=== PATIENT | female | born 1960 | race American Indian/Alaskan Native ===

== ENCOUNTER 2017-03-19 11:13 | Emergency (ER) | payer MEDICARE, BC ==
[2017-03-19 11:22] VITALS: BMI 32.3
[2017-03-19 11:27] VITALS: TEMP 98
--- NOTE | 2017-03-19 12:16 | ED PDOC ---
Arrival/HPI - General Historian: Patient - History of Present Illness Time/Duration: Prior to Arrival Symptom Onset: Sudden Symptom Course: Unchanged <Fortino Jimenez - Last Filed: 03/19/17 15:36> <LisaDu L - Last Filed: 03/19/17 17:08> - General Chief Complaint: High Blood Pressure Time Seen by Provider: 03/19/17 11:24 - History of Present Illness Narrative History of Present Illness (Text): 57F with pmh of uncontrolled HTN, CKD 3, Osteoarthritis, presents to the ED from same day surgery. Pt was scheduled to have a kidney biopsy for proteinuria but was found to have a BP of 209/118. Her covering PMD - Dr Wilburn was called which stated the patient should come here to the ED. Pt denies any headache, dizziness, fever, chills, visual changes, focal deficits, cp, sob, palpitations, abd pain, n/v/d urinary or bm changes. Pt is allergic to Clonidine. PMD: Dr Larry (Fortino Jimenez) Past Medical History - Provider Review Nursing Documentation Reviewed: Yes - Infectious Disease Hx of Infectious Diseases: None - Tetanus Immunization Tetanus Immunization: Unknown - Cardiac Hx Pacemaker: No - Pulmonary Hx Asthma: Yes - Neurological Hx Paralysis: No - HEENT Hx HEENT Disorder: No - Renal Hx Renal Failure: Yes - Endocrine/Metabolic Hx Endocrine Disorders: No - Hematological/Oncological Hx Blood Transfusions: No - Integumentary Hx Dermatological Disorder: No - Musculoskeletal/Rheumatological Hx Musculoskeletal Disorders: Yes (OA) - Gastrointestinal Hx Gastrointestinal Disorders: No - Genitourinary/Gynecological Hx Genitourinary Disorders: Yes Other/Comment: hysterectomy - Psychiatric Hx Emotional Abuse: No Hx Physical Abuse: No Hx Substance Use: No - Surgical History Hx Hysterectomy: Yes - Anesthesia Hx Anesthesia: Yes Hx Anesthesia Reactions: No Hx Malignant Hyperthermia: No - Suicidal Assessment Feels Threatened In Home Enviroment: No <Fortino Jimenez - Last Filed: 03/19/17 15:36> Family/Social History - Physician Review Nursing Documentation Reviewed: Yes Family/Social History: No Known Family HX Smoking Status: Never Smoked Hx Alcohol Use: No Hx Substance Use: No <Fortino Jimenez - Last Filed: 03/19/17 15:36> Allergies/Home Meds <Fortino Jimenez - Last Filed: 03/19/17 15:36> <Du Gonzalez - Last Filed: 03/19/17 17:08> Allergies/Adverse Reactions: Allergies clonidine Allergy (Severe, Verified 03/13/17 14:20) ANAPHYLAXIS Home Medications: Home Meds Medication Instructions Recorded Confirmed hydrALAZINE [Apresoline] 50 mg PO BID 06/01/15 03/19/17 Methyldopa [Aldomet] 250 mg PO DAILY 03/13/17 03/19/17 cloNIDine 0.2 mg/24 hr 0.2 patch TOP DAILY 03/19/17 03/19/17 Review of Systems - Review of Systems Constitutional: absent: Weight Change, Fevers Eyes: absent: Vision Changes ENT: absent: Hearing Changes Respiratory: absent: SOB, Cough Cardiovascular: absent: Chest Pain, Palpitations, Edema, Calf Pain Gastrointestinal: absent: Abdominal Pain, Diarrhea, Nausea, Vomiting Genitourinary Female: absent: Dysuria, Frequency Musculoskeletal: absent: Back Pain Skin: absent: Rash Neurological: absent: Headache, Dizziness, Focal Weakness Psychiatric: absent: Anxiety, Depression <TonyFortino - Last Filed: 03/19/17 15:36> Physical Exam Temperature: Afebrile Blood Pressure: Hypertensive Pulse: Regular Respiratory Rate: Normal Appearance: Positive for: Well-Appearing, Non-Toxic, Comfortable Mental Status: Positive for: Alert and Oriented X 3 - Systems Exam Head: Present: Atraumatic, Normocephalic Pupils: Present: PERRL Extroacular Muscles: Present: EOMI Mouth: Present: Moist Mucous Membranes Neck: Present: Normal Range of Motion Respiratory/Chest: Present: Clear to Auscultation, Good Air Exchange. No: Respiratory Distress, Accessory Muscle Use Cardiovascular: Present: Regular Rate and Rhythm, Normal S1, S2. No: Murmurs Abdomen: Present: Normal Bowel Sounds. No: Tenderness, Distention, Peritoneal Signs Upper Extremity: Present: Normal Inspection. No: Cyanosis, Edema Lower Extremity: Present: Normal Inspection. No: Edema Neurological: Present: GCS=15, CN II-XII Intact, Speech Normal Skin: Present: Warm, Dry, Normal Color. No: Rashes Psychiatric: Present: Alert, Oriented x 3, Normal Insight, Normal Concentration <Fortino Jimenez - Last Filed: 03/19/17 15:36> Temperature: Afebrile Blood Pressure: Hypertensive Pulse: Regular Respiratory Rate: Normal Appearance: Positive for: Well-Appearing, Non-Toxic, Comfortable Pain Distress: None Mental Status: Positive for: Alert and Oriented X 3 - Systems Exam Head: Present: Atraumatic, Normocephalic Pupils: Present: PERRL Extroacular Muscles: Present: EOMI Conjunctiva: Present: Normal Mouth: Present: Moist Mucous Membranes Pharnyx: Present: Normal Neck: Present: Normal Range of Motion. No: Bruit Respiratory/Chest: Present: Clear to Auscultation, Good Air Exchange. No: Respiratory Distress, Accessory Muscle Use Cardiovascular: Present: Regular Rate and Rhythm, Normal S1, S2. No: Murmurs Abdomen: Present: Normal Bowel Sounds. No: Tenderness, Distention, Peritoneal Signs Back: Present: Normal Inspection Upper Extremity: Present: Normal Inspection, NORMAL PULSES. No: Cyanosis, Edema Lower Extremity: Present: Normal Inspection, NORMAL PULSES. No: Edema Neurological: Present: GCS=15, CN II-XII Intact, Speech Normal, Motor Func Grossly Intact, Normal Sensory Function, Normal Cerebellar Funct, Norm Deep Tendon Reflexes, Gait Normal, Memory Normal, Normal 2Pt Descrimination Skin: Present: Warm, Dry, Normal Color. No: Rashes Psychiatric: Present: Alert, Oriented x 3, Normal Insight, Normal Concentration <Du Gonzalez L - Last Filed: 03/19/17 17:08> Vital Signs Temp Pulse Resp BP Pulse Ox 03/19/17 15:22 78 19 173/94 H 99 03/19/17 14:06 174/123 H 03/19/17 13:48 88 19 192/87 H 99 03/19/17 13:19 69 192/77 H 03/19/17 12:59 69 19 191/87 H 97 03/19/17 12:45 74 19 184/100 H 98 03/19/17 12:21 65 137/104 H 03/19/17 12:14 56 L 197/110 H 03/19/17 11:26 98.0 F 59 L 18 197/121 H 99 Medical Decision Making Reassessment Condition: Re-examined, Improved <Fortino Jimenez - Last Filed: 03/19/17 15:36> <Du Gonzalez - Last Filed: 03/19/17 17:08> ED Course and Treatment: Impression: 57F with pmh of uncontrolled HTN, CKD 3, Osteoarthritis, TIA (2012) presents to the ED from same day surgery to have a kidney biopsy for proteinuria but was found to have a BP of 209/118. Differential Diagnosis included but are not limited to: Uncontrolled HTN vs CVA Plan: - CBC CMP done today - Hydralazine 10mg Stat - Reassess and disposition Prior Visits: Notes and results from previous visits were reviewed. Progress Notes: 03/19/17 15:36 BP 173/94 hemodynamically stable. Instructed to follow up with her PMD with in next 2-3 days for better control of her BP. (Fortino Jimenez) 03/19/17 15:39 Impression: 57F with pmh of uncontrolled HTN, CKD 3, Osteoarthritis, TIA (2012) presents to the ED from same day surgery to have a kidney biopsy for proteinuria but was found to have a BP of 209/118. Differential Diagnosis included but are not limited to: Uncontrolled HTN with no symptoms. I agree with resident note history and physical. I don't agree with differential listed on resident chart. Patient does have elevated blood pressure with no other symptoms. No weakness or numbness, no headache, no change in vision, no change in speech, and no other neurological complaints. No CP, Abdominal Pain, or back pain. She states that she was told to come down just because her blood pressure was elevated. Throughput the ED she was given Hydralazine IV x 2 doses and her blood pressure slowly improved. She continued to be asymptomatic in the ED. Patient had labs drawn earlier today prior to ED arrival and they have a creatinine that has not changed from baseline. Patient does not have any symptoms or lab work that are concerning for end organ injury at this point. She wants to go home. She has good follow up with her Dr. Larry and will f/u with him in 1-2days she states. She will continue to take her blood pressure medications as prescribed. (Du Gonzalez) - Medication Orders Current Medication Orders: Discontinued Medications Hydralazine HCl (Apresoline) 10 mg IVP STAT STA Stop: 03/19/17 12:09 Last Admin: 03/19/17 12:14 Dose: 10 mg Hydralazine HCl (Apresoline) 10 mg IVP STAT [facility] Last Admin: 03/19/17 13:19 Dose: 10 mg Disposition/Present on Arrival - Present on Arrival Any Indicators Present on Arrival: No History of DVT/PE: No History of Uncontrolled Diabetes: No Urinary Catheter: No History of Decub. Ulcer: No History Surgical Site Infection Following: None - Disposition Have Diagnosis and Disposition been Completed?: Yes Disposition Time: 15:15 <Fortino Jimenez - Last Filed: 03/19/17 15:36> - Present on Arrival Any Indicators Present on Arrival: No History Surgical Site Infection Following: None - Disposition Have Diagnosis and Disposition been Completed?: Yes Patient Plan: Discharge <Du Gonzalez Jaqueline - Last Filed: 03/19/17 17:08> - Disposition Diagnosis: Hypertension Disposition: HOME/ ROUTINE Condition: IMPROVED Discharge Instructions (ExitCare): Hypertension (ED) Additional Instructions: Ms Oliviaer, thank you for letting us take care of you today. Your provider was Dr. Gonzalez You were treated for Hypertension. The emergency medical care you received today was directed at your acute symptoms. If you were prescribed any medication, please fill it and take as directed. It may take several days for your symptoms to resolve. Return to the Emergency Department if your symptoms worsen, do not improve, or if you have any other problems. Please contact your doctor or call one of the physicians/clinics you have been referred to that are listed on the Patient Visit Information form that is included in your discharge packet. Bring any paperwork you were given at discharge with you along with any medications you are taking to your follow up visit. Our treatment cannot replace ongoing medical care by a primary care provider (PCP) outside of the emergency department. Thank you for allowing the [facility] team to be part of your care today. If you had an X-Ray or CT scan: A Radiologist will review the ED reading if any change in treatment is needed we will contact you. If you had a blood, urine, or wound culture: It will take several days for the results, if any change in treatment is needed we will contact you. If you had an STI test: It will take 48 hours for the results. Please call after 1 week if you have not heard back. Referrals: Anthony Larry MD [Staff Provider] - Follow up with primary Forms: [facility] ([place]i)
[2017-03-19 12:46] VITALS: RESP 19
[2017-03-19 13:48] VITALS: O2SAT 99
--- NOTE | 2017-03-19 14:23 | CARD ---
APPROVED REPORT EKG Measurement Heart [id number] MD [id number] <Conclusion> Sinus bradycardia Possible Left atrial enlargement Left ventricular hypertrophy ST & T wave abnormality, consider lateral ischemia
[2017-03-19 15:23] VITALS: BP 173/94; PULSE 78
== END 2017-03-19 15:46 | disposition home or self-care (01) ==
LOC: ED 11:13
DX: I12.9 Hypertensive chronic kidney disease with stage 1 through stage 4 chronic kidney disease, or unspecified chronic kidney disease (principal); N18.3 Chronic kidney disease, stage 3 (moderate)
CPT/HCPCS: 93005; 96374; 96376; 99285; J0360

== ENCOUNTER 2017-04-11 10:44 | Day surgery (SDC) | payer MEDICARE, BC ==
[2017-04-11 11:39] LABS: ADD MANUAL DIFF? NO
[2017-04-11 11:51] LABS: CALCIUM 9.7 mg/dL (8.4-10.5); POTASSIUM 3.9 mmol/L (3.6-5.0)
[2017-04-11 11:53] LABS: HEMATOCRIT 35.7 % (36.0-48.0); MEAN CELL VOLUME 84.8 fL (80.0-105.0); MEAN CORPUSCULAR HGB CONC 33.1 g/dl (31.0-37.0); MEAN PLATELET VOLUME 12.5 fl (7.0-11.0); PLATELET COUNT 157 10^3/uL (120.0-450.0); RED CELL DISTRIBUTION WIDTH 12.9 % (11.5-14.5); WHITE BLOOD COUNT 3.7 10^3/ul (4.5-11.0)
[2017-04-11 11:54] LABS: BASO # 0.01 K/mm3 (0.0-2.0); BASO % 0.3 % (0.0-3.0); EOS # 0.1 (0.0-0.7); EOS % 3.5 % (1.5-5.0); GRAN # 2.52 (1.4-6.5); INR 1.02 (0.93-1.08); LYMPH # 0.8 (1.2-3.4); LYMPH % 21.1 % (22.0-35.0); MONO # 0.3 (0.1-0.6); PARTIAL THROMBOPLASTIN TIME 26.2 Seconds (23.7-30.8)
--- NOTE | 2017-04-11 12:17 | CP.SDSHP ---
Same Day Surgery H & P - History Proposed Procedure: Cat scan guided renal biopsy Pre-Op Diagnosis: Proteinuria - Previous Medical/Surgical History Cardiac: Hypertension Endocrine/Metabolic: Renal Disease (CKD,Nephrosclerosis) Neuro: TIA/CVA (in 2012,had minimal effect on the L side.) Misc: Anemia, Other (Arthritis,) Pain: 0. No Pain Comments: Patient states she was told she has protienuria,needs to have renal biopsy. Previous Surgical History: Total replacement of R knee. R knee manipulation. C -section x 1. Hysterectomy. Colonoscopy. Excision R sholder cyst - Allergies Allergies: Allergies clonidine Allergy (Severe, Verified 03/13/17 14:20) ANAPHYLAXIS - Physical Exam General Appearance: Well nourished female Vital Signs: Vital Signs 04/11/17 11:15 Temperature 97.4 F L Pulse Rate 93 H Respiratory 18 Rate Blood Pressure 168/87 H O2 Sat by Pulse 98 Oximetry Mental Status: Alert & Oriented x3 Neuro: WNL Lungs: WNL - {Optional Preform as Required} Abdomen: WNL - Impression Impression: Proteinuria - Date & Time Date: 04/11/17 Time: 12:14 Short Stay Discharge - Short Stay Discharge Admitting Diagnosis/Reason for Visit: PROTEINURIA R80.9 Disposition: HOME/ ROUTINE Referrals: Anthony Larry MD [Primary Care Provider] -
[2017-04-11] MEDS ORDERED: Midazolam 2 MG/2 ML VIAL ONE (12:47)
[2017-04-11] MEDS ORDERED: Oxycodone/Acetaminophen 5/325 mg Tab PO PRN (13:31)
[2017-04-11] MEDS ORDERED: Sodium Chloride 0.45% 1,000 ML IV SCH (13:45)
[2017-04-11 14:26] VITALS: O2SAT 98
[2017-04-11 14:39] VITALS: RESP 18; TEMP 97.8
[2017-04-11 15:54] VITALS: BP 156/87; PULSE 53
--- NOTE | 2017-04-11 22:04 | CT ---
PROCEDURE: CT guided left renal cortex biopsy. HISTORY: Poorly controlled hypertension. Significant proteinuria. Evaluate for glomerulonephropathy PHYSICIAN(S): Charles Larry MD. TECHNIQUE: The relative risks and indications of the procedure were explained to the patient and consent obtained. The patient was placed prone on the CT scanner and preliminary images through the knees obtained. Conscious sedation and monitoring were provided throughout the procedure by a nurse. The limited imaging of the kidneys is unremarkable.. A left posterior approach was selected and the area prepped and draped in the usual sterile fashion. 1% Xylocaine was used to anesthetize the skin and soft tissues. A 17-gauge guiding needle was advanced into the medial and inferior left renal cortex. Its position was confirmed with CT. Using coaxial technique, multiple core biopsies were obtained. The postprocedure images show no evidence of significant hemorrhage. IMPRESSION: 1. CT-guided left renal cortex biopsy as described above.
== END 2017-04-11 16:20 | disposition home or self-care (01) ==
LOC: SDS 10:44
PROVIDERS: ATTEND Radiology Vascular & Interventional Radiology
DX: R80.9 Proteinuria, unspecified (principal)
CPT/HCPCS: 36415; 50200; 77012; 80048; 85025; 85610; 85730; J2250; J2405; J3010; J7030

== ENCOUNTER 2017-07-18 13:18 | Emergency (ER) | payer MEDICARE ==
[2017-07-18 13:23] VITALS: BMI 41.0
[2017-07-18 13:25] VITALS: RESP 18; TEMP 97.9; O2SAT 99
--- NOTE | 2017-07-18 13:58 | ED PDOC ---
Arrival/HPI - General Historian: Patient - General Chief Complaint: Back Pain Time Seen by Provider: 07/18/17 13:46 - History of Present Illness Narrative History of Present Illness (Text): 07/18/17 13:54 This 57 yo female presents to this ED c/o left lower back pain x 2 days. Patient denies sob, cp, skin rash, weakness, paresthesias, GI/ incontinence, saddle anesthesia, urinary retention, urinary symptoms, or abnormal gait. (Saeid Fonseca) Past Medical History - Provider Review Nursing Documentation Reviewed: Yes - Infectious Disease Hx of Infectious Diseases: None - Tetanus Immunization Tetanus Immunization: Unknown - Reproductive Menopause: Yes - Cardiac Hx Hypertension: Yes Hx Pacemaker: No - Pulmonary Hx Asthma: Yes - Neurological Hx Paralysis: No - HEENT Hx HEENT Disorder: No - Renal Hx Renal Failure: Yes Other/Comment: kidney 2 months ago - Endocrine/Metabolic Hx Endocrine Disorders: No - Hematological/Oncological Hx Blood Transfusions: No - Integumentary Hx Dermatological Disorder: No - Musculoskeletal/Rheumatological Hx Musculoskeletal Disorders: Yes (OA) - Gastrointestinal Hx Gastrointestinal Disorders: No - Genitourinary/Gynecological Hx Genitourinary Disorders: Yes Other/Comment: hysterectomy - Psychiatric Hx Substance Use: No - Surgical History Other/Comment: R knee replacement - Anesthesia Hx Anesthesia Reactions: No Hx Malignant Hyperthermia: No - Suicidal Assessment Feels Threatened In Home Enviroment: No Family/Social History - Physician Review Nursing Documentation Reviewed: Yes Family/Social History: Other (non-contributory) Smoking Status: Never Smoked Hx Alcohol Use: No Hx Substance Use: No Allergies/Home Meds Allergies/Adverse Reactions: Allergies clonidine Allergy (Severe, Verified 03/13/17 14:20) ANAPHYLAXIS Home Medications: Home Meds Medication Instructions Recorded Confirmed hydrALAZINE [Apresoline] 50 mg PO BID 06/01/15 04/11/17 Methyldopa [Aldomet] 250 mg PO DAILY 03/13/17 04/11/17 amLODIPine [Norvasc] 10 mg PO DAILY 04/08/17 04/11/17 Review of Systems - Review of Systems Constitutional: Normal. absent: Fatigue, Weight Change, Fevers Eyes: Normal ENT: Normal Respiratory: Normal. absent: SOB Cardiovascular: Normal. absent: Chest Pain Gastrointestinal: Normal. absent: Abdominal Pain, Nausea, Vomiting Genitourinary Female: Normal. absent: Dysuria, Frequency, Hematuria, Vaginal Bleeding, Vaginal Discharge Musculoskeletal: Back Pain Skin: Normal Neurological: Normal Endocrine: Normal Hemo/Lymphatic: Normal Psychiatric: Normal Physical Exam Temperature: Afebrile Blood Pressure: Normal Pulse: Regular Respiratory Rate: Normal Appearance: Positive for: Well-Appearing, Non-Toxic, Comfortable Pain Distress: None Mental Status: Positive for: Alert and Oriented X 3 - Systems Exam Head: Present: Atraumatic, Normocephalic Pupils: Present: PERRL Extroacular Muscles: Present: EOMI Conjunctiva: Present: Normal Mouth: Present: Moist Mucous Membranes Neck: Present: Normal Range of Motion Respiratory/Chest: Present: Clear to Auscultation, Good Air Exchange. No: Respiratory Distress, Accessory Muscle Use Cardiovascular: Present: Regular Rate and Rhythm, Normal S1, S2. No: Murmurs Abdomen: Present: Normal Bowel Sounds. No: Tenderness, Distention, Peritoneal Signs Back: Present: Normal Inspection, Paraspinal Tenderness (mild b/l paravertebral tenderness. No vertebral step off. No vertebral point tenderness). No: CVA Tenderness, Midline Tenderness Upper Extremity: Present: Normal Inspection, Normal ROM. No: Cyanosis, Edema Lower Extremity: Present: Normal Inspection, Normal ROM. No: Edema Neurological: Present: GCS=15, CN II-XII Intact, Speech Normal Skin: Present: Warm, Dry, Normal Color. No: Rashes Psychiatric: Present: Alert, Oriented x 3, Normal Insight, Normal Concentration Vital Signs Temp Pulse Resp BP Pulse Ox 07/18/17 15:16 56 L 18 168/85 H 99 07/18/17 13:19 97.9 F 52 L 18 179/94 H 99 Medical Decision Making Re-evaluation Time: 14:54 Reassessment Condition: Re-examined, Improved - Lab Interpretations I have reviewed the lab results: Yes Interpretation: No clinic. lab abnormalty ED Course and Treatment: I was available for consultation during PA evaluation. The chart was reviewed by me, and I agree with disposition. The documented history was done by the physician director of corporate real estate. The documented procedures were done by the physician director of corporate real estate. (Artem Ludwig) 07/18/17 14:54 Re-evaluation. Patient feels better. Discussed results and plan with patient who expresses understanding. All questions answered and there is agreement with the plan to discharge home with instructions. Patient stable for discharge. Return if symptoms persist or worsen. Patient refused pain medication in this ED at this time. (Saeid Fonseca) - Lab Interpretations Lab Results: Lab Results 07/18/17 14:05: Urine Color Yellow, Urine Appearance Clear, Urine pH 6.0, Ur Specific [place] 1.010, Urine Protein Negative, Urine Glucose (UA) Negative, Urine Ketones Negative, Urine Blood Negative, Urine Nitrate Negative, Urine Bilirubin Negative, Urine Urobilinogen 0.2, Ur Leukocyte Esterase Negative Disposition/Present on Arrival - Present on Arrival Any Indicators Present on Arrival: No History of DVT/PE: No History of Uncontrolled Diabetes: No Urinary Catheter: No History of Decub. Ulcer: No History Surgical Site Infection Following: None - Disposition Have Diagnosis and Disposition been Completed?: Yes Disposition Time: 15:05 Patient Plan: Discharge - Disposition Diagnosis: Back pain Disposition: HOME/ ROUTINE Condition: GOOD Discharge Instructions (ExitCare): Back Pain (ED) Additional Instructions: Call private doctor for follow up visit in 1-2 days. Take medication as instructed. Return to emergency if symptoms worsen. Prescriptions: Diazepam [Valium] 2 mg PO DAILY #7 tablet traMADol/Acetaminophen [Ultracet 325 MG-37.5 MG] 1 tab PO Q6H PRN #12 tab PRN Reason: Pain, Severe (8-10) Referrals: PCP,NO [Primary Care Provider] - Follow up with primary Forms: [facility] (Maltese)
[2017-07-18 14:25] LABS: URINE BILIRUBIN NEGATIVE (NEGATIVE); URINE BLOOD NEGATIVE (NEGATIVE); URINE GLUCOSE (UA) NEGATIVE (NEGATIVE); URINE KETONE NEGATIVE (NEGATIVE); URINE LEUKOCYTE ESTERASE NEGATIVE Leu/uL (NEGATIVE); URINE PROTEIN NEGATIVE mg/dL (<30 mg/dL); URINE UROBILINOGEN 0.2 E.U./dL (<1 E.U./dL)
[2017-07-18 14:34] LABS: URINE APPEARANCE CLEAR (CLEAR); URINE COLOR YELLOW (YELLOW)
[2017-07-18 15:16] VITALS: BP 168/85; PULSE 56
== END 2017-07-18 15:22 | disposition home or self-care (01) ==
LOC: ED 13:18
DX: M54.9 Dorsalgia, unspecified (principal)

== ENCOUNTER 2019-01-19 12:55 | Outpatient (CLI) | payer MEDICARE, BC | END 2019-01-19 12:56 | disposition home or self-care (01) | LOC: RAD 12:55 | DX: Z12.31 Encounter for screening mammogram for malignant neoplasm of breast (principal) ==